=== PATIENT | male | born 1965 | race Caucasian/White ===

== ENCOUNTER 2023-01-07 09:57 | Outpatient (REF) | payer OTHER, SELFPAY ==
[2023-01-07 19:10] LABS: ALT 25 U/L (16-63); AST 21 U/L (15-37); Calculated LDL 164 mg/dL (<100); Cholesterol 234 mg/dL (<200); HDL Cholesterol 63 mg/dL (40-60); Triglyceride 39 mg/dL (<150)
== END 2023-01-07 09:58 | disposition home or self-care (01) ==
LOC: NCHCN 09:57
PROVIDERS: PCP Nurse Practitioner Family; Visit Provider Nurse Practitioner Family
DX: E78.5 Hyperlipidemia, unspecified (principal); I10 Essential (primary) hypertension
CPT/HCPCS: 80061; 84450; 84460

== ENCOUNTER 2024-01-06 10:19 | Outpatient (REF) | payer OTHER, SELFPAY ==
[2024-01-06 20:36] LABS: ALT 28 U/L (16-63); AST 22 U/L (15-37); Albumin 3.9 g/dL (3.4-5.0); Alkaline Phosphatase 53 U/L (46-116); Anion Gap 8.6 mmol/L (3-11); BUN 18 mg/dL (7-18); Bilirubin, Total 0.7 mg/dL (0.2-1.0); CO2 27.4 mmol/L (21.0-32.0); CREATININE 1.1 mg/dL (0.70-1.30); Calcium 8.4 mg/dL (8.5-10.1); Calculated LDL 164 mg/dL (<100); Chloride 107 mmol/L (98-107); Cholesterol 237 mg/dL (<200); Estimated GFR 77.81 (mL/min/1.73m2); Glucose 95 mg/dL (74-106); HDL Cholesterol 67 mg/dL (40-60); Potassium 4.2 mmol/L (3.5-5.1); Sodium 143 mmol/L (136-145); Total Protein 7.1 g/dL (6.4-8.2); Triglyceride 30 mg/dL (<150)
== END 2024-01-06 10:20 | disposition home or self-care (01) ==
LOC: NCHCN 10:19
PROVIDERS: PCP Nurse Practitioner Family; Visit Provider Nurse Practitioner Family
DX: E78.5 Hyperlipidemia, unspecified (principal)
CPT/HCPCS: 80053; 80061

== ENCOUNTER 2024-03-09 15:04 | Outpatient (REF) | payer OTHER, SELFPAY | END 2024-03-09 15:05 | disposition home or self-care (01) | LOC: NCHCN 15:04 | PROVIDERS: PCP Nurse Practitioner Family; Visit Provider Nurse Practitioner Family | DX: J02.9 Acute pharyngitis, unspecified (principal) | CPT/HCPCS: 87070 ==

== ENCOUNTER 2025-01-11 16:44 | Outpatient (REF) | payer OTHER, SELFPAY ==
[2025-01-11 19:31] LABS: ALT 28 U/L (16-63); AST 18 U/L (15-37); Albumin 4.1 g/dL (3.4-5.0); Alkaline Phosphatase 57 U/L (46-116); Anion Gap 5.6 mmol/L (3-11); BUN 29 mg/dL (7-18); Bilirubin, Total 0.7 mg/dL (0.2-1.0); CO2 28.4 mmol/L (21.0-32.0); CREATININE 1.1 mg/dL (0.70-1.30); Calcium 9.2 mg/dL (8.5-10.1); Calculated LDL 300 mg/dL (<100); Chloride 106 mmol/L (98-107); Cholesterol 388 mg/dL (<200); Estimated GFR 77.33 (mL/min/1.73m2); Glucose 94 mg/dL (74-106); HDL Cholesterol 83 mg/dL (>or=40); Potassium 4.4 mmol/L (3.5-5.1); Sodium 140 mmol/L (136-145); Total Protein 7.6 g/dL (6.4-8.2); Triglyceride 27 mg/dL (<150)
== END 2025-01-11 16:45 | disposition home or self-care (01) ==
LOC: NCHCN 16:44
PROVIDERS: PCP Nurse Practitioner Family; Visit Provider Nurse Practitioner Family
DX: Z00.00 Encounter for general adult medical examination without abnormal findings (principal)
CPT/HCPCS: 80053; 80061

== ENCOUNTER 2025-06-28 08:36 | Outpatient (REF) | payer OTHER, SELFPAY ==
[2025-06-28 20:07] LABS: Calculated LDL 217 mg/dL (<100); Cholesterol 289 mg/dL (<200); HDL Cholesterol 67 mg/dL (>or=40); Triglyceride 26 mg/dL (<150)
== END 2025-06-28 08:37 | disposition home or self-care (01) ==
LOC: NCHCN 08:36
PROVIDERS: PCP Nurse Practitioner Family; Visit Provider Nurse Practitioner Family
DX: E78.5 Hyperlipidemia, unspecified (principal)
CPT/HCPCS: 80061